=== PATIENT | female | born 1950 | race Caucasian/White ===

== ENCOUNTER → 2016-05-15 | Outpatient (CLI) | payer OTHER ==
--- NOTE | 2016-05-15 12:18 | ECHOF ---
Referral Reason:I10 htn MEASUREMENTS -------- HEIGHT: 170.2 cm WEIGHT: 77.1 kg BP: 114/74 RVIDd: 2.4 cm (< 3.3) IVSd: 0.9 cm (0.6 - 1.1) LVIDd: 3.4 cm (3.9 - 5.3) LVPWd: 1.0 cm (0.6 - 1.1) IVSs: 1.4 cm LVIDs: 2.6 cm LVPWs: 1.3 cm LA Diam: 2.6 cm (2.7 - 3.8) LAESV Index (A-L): 13.10 ml/m Ao Diam: 3.2 cm (2.0 - 3.7) AV Cusp: 1.8 cm (1.5 - 2.6) MV EXCURSION: 13.275 mm (> 18.000) MV EF SLOPE: 30 mm/s (70 - 150) EPSS: 0.7 cm MV E Amarjit: 1.14 m/s MV DecT: 383 ms MV A Amarjit: 1.27 m/s MV E/A Ratio: 0.90 RAP: 5.00 mmHg RVSP: 34.93 mmHg FINDINGS -------- Sinus rhythm. This was a technically good study. The left ventricular size is normal. Left ventricular wall thickness is normal. Overall left ventricular systolic function is normal with, an EF between 60 - 65 %. The diastolic filling pattern is normal for the age of the patient 15.28. The right ventricle is normal in size and function. The left atrium is normal in size. Normal LA size by volume 22+/-6 ml/m2. The right atrium is normal in size. The aortic valve is trileaflet and appears structurally normal. The mitral valve leaflets are mildly thickened. Mild mitral annular calcification present. Mild tricuspid regurgitation present. There is mild pulmonary hypertension. The pulmonic valve is normal. There is no pulmonic regurgitation present. The aortic root size is normal. Normal inferior vena cava with normal inspiratory collapse consistent with estimated right atrial pressure of 5 mmHg. There is no pericardial effusion. CONCLUSIONS -------- 1. Sinus rhythm. 2. The aortic valve is trileaflet and appears structurally normal. 3. The mitral valve leaflets are mildly thickened. 4. Mild mitral annular calcification present. 5. Mild tricuspid regurgitation present. 6. There is mild pulmonary hypertension. 7. The aortic root size is normal. 8. Normal inferior vena cava with normal inspiratory collapse consistent with estimated right atrial pressure of 5 mmHg. 9. There is no pericardial effusion. 10. This was a technically good study. 11. The left ventricular size is normal. 12. Left ventricular wall thickness is normal. 13. Overall left ventricular systolic function is normal with, an EF between 60 - 65 %. 14. The right ventricle is normal in size and function. 15. The left atrium is normal in size. 16. Normal LA size by volume 22+/-6 ml/m2. 17. The right atrium is normal in size. CHEMICAL ENGRAVER: Claudia Blackwood RDCS
--- NOTE | 2016-05-15 18:11 | EST ---
DATE OF SERVICE: 05/15/2016 AGE: 65Y SEX: F HT: 5'7" WT: 170 lbs. Protocol Fidencio: Other: Stage: II Dur. of Exercise: 5 minutes *Heart Rate Blood Pressure *Rest: 89 Rest: 112/79 * *Max. Achieved: 155 Maximum BP: 158/76 85% PMHR: 133 100% PMHR: 155 *METS: 5.8 INDICATIONS: ( ) MEDICATIONS: Metformin, vitamin B12, tumeric. STRESS DATA: Pre-testing physical examination showed a heart rate of 89, blood pressure 112/79 mmHg. Baseline EKG shows sinus mechanism. The patient exercised ( ) Fidencio protocol for a total of 5 minutes and achieved 5.8 METS. Maximum heart rate was 155, which is about 99% of maximum predicted heart rate. Maximum blood pressure was 158/76 mmHg. Clinically the patient did not have any symptoms. The EKG did not show any significant ST or T-wave abnormalities consistent with ischemia. CONCLUSION: 1. Average exercise capacity. 2. Normal EKG in response to exercise.
== END | disposition home or self-care (01) ==
LOC: RADNMMAIN 10:08
PROVIDERS: ATTEND Family Medicine
DX: I08.1 Rheumatic disorders of both mitral and tricuspid valves (principal); I27.2 Other secondary pulmonary hypertension
CPT/HCPCS: 93017; 93306

== ENCOUNTER → 2017-01-30 | Outpatient (CLI) | payer OTHER ==
--- NOTE | 2017-01-31 07:44 | MM ---
Reason for exam: screening (asymptomatic). Last mammogram was performed 1 year ago. History: Patient is postmenopausal. Took hormonal contraceptives for 8 years beginning at age 22. Physical Findings: A clinical breast exam by your physician is recommended on an annual basis and results should be correlated with mammographic findings. MG Screening Mammo w CAD Bilateral CC and MLO view(s) were taken. Prior study comparison: January 18, 2016, bilateral MG screening mammo w CAD. January 13, 2015, bilateral MG foundation screening mammo. The breast tissue is heterogeneously dense. This may lower the sensitivity of mammography. Stable benign calcifications. Asymmetric distortion upper right breast 6.4cm from nipple. This finding is changed when compared with previous exams. ASSESSMENT: Incomplete: need additional imaging evaluation, BI-RAD 0 RECOMMENDATION: Special view mammogram of the right breast. If lesion persists on supplemental views, image directed ultrasound is recommended. [facility] will attempt to contact patient to return for supplemental views and ultrasound if indicated.
== END | disposition home or self-care (01) ==
LOC: RADMAMWWP 09:35
PROVIDERS: ATTEND Family Medicine
DX: Z12.31 Encounter for screening mammogram for malignant neoplasm of breast (principal)

== ENCOUNTER → 2018-02-11 | Outpatient (CLI) | payer MEDICARE, OTHER ==
--- NOTE | 2018-02-12 10:36 | MM ---
Reason for exam: screening (asymptomatic). Last mammogram was performed 1 year ago. History: Patient is postmenopausal. Took hormonal contraceptives for 8 years beginning at age 22. Physical Findings: A clinical breast exam by your physician is recommended on an annual basis and results should be correlated with mammographic findings. MG 3D Screening Mammo W/Cad Bilateral CC and MLO view(s) were taken. Prior study comparison: January 30, 2017, bilateral MG screening mammo w CAD. January 18, 2016, bilateral MG screening mammo w CAD. The breast tissue is heterogeneously dense. This may lower the sensitivity of mammography. There are benign appearing round vascular calcifications bilaterally. There is no discrete abnormality. ASSESSMENT: Benign, BI-RAD 2 RECOMMENDATION: Routine screening mammogram of both breasts in 1 year.
== END | disposition home or self-care (01) ==
LOC: RADMAMWWP 07:33
PROVIDERS: ATTEND Family Medicine
DX: Z12.31 Encounter for screening mammogram for malignant neoplasm of breast (principal)
CPT/HCPCS: 77063; 77067

== ENCOUNTER → 2019-02-18 | Outpatient (CLI) | payer MEDICARE ==
--- NOTE | 2019-02-19 10:06 | MM ---
Reason for exam: screening (asymptomatic). Last mammogram was performed 1 year ago. History: Patient is postmenopausal. Took hormonal contraceptives for 8 years beginning at age 22. Physical Findings: A clinical breast exam by your physician is recommended on an annual basis and results should be correlated with mammographic findings. MG 3D Screening Mammo W/Cad Bilateral CC and MLO view(s) were taken. Prior study comparison: February 11, 2018, bilateral MG 3d screening mammo w/cad. January 30, 2017, bilateral MG screening mammo w CAD. The breast tissue is heterogeneously dense. This may lower the sensitivity of mammography. Benign appearing bilateral calcifications. No suspicious abnormality. No significant changes when compared with prior studies. ASSESSMENT: Benign, BI-RAD 2 RECOMMENDATION: Routine screening mammogram of both breasts in 1 year.
== END | disposition home or self-care (01) ==
LOC: RADMAMWWP 13:19
PROVIDERS: ATTEND Family Medicine
DX: Z12.31 Encounter for screening mammogram for malignant neoplasm of breast (principal)
CPT/HCPCS: 77063; 77067

== ENCOUNTER 2019-02-24 08:04 | Inpatient (IN) | payer MEDICARE ==
[2019-02-24] MEDS ORDERED: MORPHINE SULFATE 4 MG/ML SYRINGE IV STA (08:12)
[2019-02-24] MEDS ORDERED: SODIUM CHLORIDE 0.9% 500 ML 500 ML IV STA (08:12)
[2019-02-24] MEDS ORDERED: ASPIRIN 81 MG PO STA (08:12)
[2019-02-24] MEDS ORDERED: ATORVASTATIN 80 MG TAB PO STA (08:13)
[2019-02-24] MEDS ORDERED: HEPARIN SODIUM,PORCINE 5,000 UNIT/ML 1 ML VIAL IV STA (08:13)
--- NOTE | 2019-02-24 08:15 | ED ---
General Adult HPI - General Stated complaint: CHEST PAIN Time Seen by Provider: 02/24/19 08:04 Source: patient, family, EMS, RN notes reviewed, old records reviewed Mode of arrival: EMS Limitations: no limitations - History of Present Illness Initial comments: Patient is a pleasant 68-year-old female presenting to the emergency Department with complaints of chest discomfort. Onset of symptoms was around 6:30 this morning. Patient was at work at [employer]. Discomfort was 10/10 however now is 8/10. Discomfort feels like pressure. There is some radiation out laterally as well as the left arm. Patient does feel associated shortness of breath, nausea, and sweaty. Patient did vomit once in the emergency department. No history of similar symptoms previously. No back pain. - Related Data Allergies Allergy/AdvReac Type Severity Reaction Status Date / Time No Known Allergies Allergy Verified 02/24/19 08:36 Review of Systems ROS Statement: Those systems with pertinent positive or pertinent negative responses have been documented in the HPI. ROS Other: All systems not noted in ROS Statement are negative. Constitutional: Denies: fever Eyes: Denies: eye pain ENT: Denies: ear pain Respiratory: Reports: dyspnea Cardiovascular: Reports: chest pain Endocrine: Denies: fatigue Gastrointestinal: Reports: nausea Genitourinary: Denies: dysuria Musculoskeletal: Denies: back pain Skin: Denies: rash Neurological: Denies: weakness Past Medical History Past Medical History: Diabetes Mellitus, Hyperlipidemia Past Drug Use History: None Reported General Exam Limitations: no limitations General appearance: alert, in distress Head exam: Present: normocephalic Eye exam: Present: normal appearance Neck exam: Present: normal inspection Respiratory exam: Present: normal lung sounds bilaterally. Absent: chest wall tenderness Cardiovascular Exam: Present: regular rate, normal rhythm, normal heart sounds Expanded Peripheral pulses: 2+: Radial (R), Radial (L), Posterior Tibialis (R), Posterior Tibialis (L), Dorsalis Pedis (R), Dorsalis Pedis (L) GI/Abdominal exam: Present: soft. Absent: tenderness Extremities exam: Present: normal inspection. Absent: pedal edema, calf tenderness Back exam: Present: normal inspection Neurological exam: Present: alert Psychiatric exam: Present: normal affect, normal mood Skin exam: Present: normal color Course Vital Signs 02/24/19 08:12 Temperature 98.0 F Pulse Rate 78 Respiratory 16 Rate Blood Pressure 157/76 O2 Sat by Pulse 99 Oximetry - Reevaluation(s) Reevaluation #1: 02/24/19 08:15 Repeat EKG: Right-sided EKG shows sinus rhythm at 69. NJ 144. QRS 86. QT 376. QTc 402. Normal axis. Inferior ST elevation. There is some evidence of elevation in lead V4. EKG Findings - EKG Comments: EKG Findings:: Sinus rhythm at 72. NJ 136. QRS 108. QT 386. QTc 422. Normal axis. Significant ST elevation inferior with reciprocal change in aVL. There is some depression G2 V3 V4 and V5 V6. Medical Decision Making - Medical Decision Making Case was discussed with Dr. Elizabeth with cardiology. Case was also discussed with Dr. Brunson from cardiology. Dr. Barkley has been paged for admission covering for Dr. Segura. Patient and family were updated on diagnosis and plan. - Lab Data Result diagrams: 02/24/19 08:15 Lab Results 02/24/19 Range/Units 08:15 WBC 10.4 (3.8-10.6) k/uL RBC 4.40 (3.80-5.40) m/uL Hgb 13.6 (11.4-16.0) gm/dL Hct 39.8 (34.0-46.0) % MCV 90.5 (80.0-100.0) fL MCH 31.0 (25.0-35.0) pg MCHC 34.3 (31.0-37.0) g/dL RDW 12.6 (11.5-15.5) % Plt Count 268 (150-450) k/uL Neutrophils % 73 % Lymphocytes % 16 % Monocytes % 6 % Eosinophils % 2 % Basophils % 0 % Neutrophils # 7.6 (1.3-7.7) k/uL Lymphocytes # 1.7 (1.0-4.8) k/uL Monocytes # 0.7 (0-1.0) k/uL Eosinophils # 0.2 (0-0.7) k/uL Basophils # 0.0 (0-0.2) k/uL - Radiology Data Interpreted by me: No evidence of mediastinal widening. No acute abnormality. Disposition Clinical Impression: STEMI (ST elevation myocardial infarction) Disposition: ADMITTED IP TO THIS HOSP Condition: Critical Is patient prescribed a controlled substance at d/c from ED?: No Referrals: Leon Cade DO [Primary Care Provider] - 1-2 days
[2019-02-24] MEDS ORDERED: SODIUM CHLORIDE 0.9% 1,000 ML IV ONE (08:30)
[2019-02-24] MEDS ORDERED: LIDOCAINE 1% INJ 10MG/ML (20 ML MDV) ONE (08:35)
[2019-02-24] MEDS ORDERED: LIDOCAINE 1% INJ 10MG/ML (20 ML MDV) SQ ONE (08:38)
[2019-02-24] MEDS ORDERED: MIDAZOLAM 2 MG/2 ML VIAL IV ONE (08:40)
--- NOTE | 2019-02-24 08:42 | XR ---
EXAMINATION TYPE: XR chest 1V portable DATE OF EXAM: 02/24/2019 Comparison: 03/20/2016 Clinical History: 68-year-old female chest pain Findings: Heart normal size. Aorta and pulmonary vasculature within normal limits. Mild interstitial prominence appears largely chronic. Strandy bibasilar atelectasis. No consolidation or pleural effusion. Impression: Chronic appearing changes, possible bronchitis or asthma. Otherwise, no acute cardiopulmonary process .
[2019-02-24] MEDS ORDERED: CLOPIDOGREL 75 MG TAB ONE (08:45)
[2019-02-24] MEDS ORDERED: BIVALIRUDIN BOLUS 250 MG/50 ML IV ONE (08:45)
[2019-02-24] MEDS ORDERED: BIVALIRUDIN 250 MG in SODIUM CHLORIDE 0.9% 50 ML IV ONE (08:46)
[2019-02-24] MEDS ORDERED: CLOPIDOGREL 75 MG TAB PO ONE (08:49)
[2019-02-24 08:53] LABS: Basophils % (A) 0 %; Eosinophils # (A) 0.2 k/uL (0-0.7); Eosinophils % (A) 2 %; HCT 39.8 % (34.0-46.0); HGB 13.6 gm/dL (11.4-16.0); Lymphocytes # (A) 1.7 k/uL (1.0-4.8); Lymphocytes % (A) 16 %; MCHC 34.3 g/dL (31.0-37.0); MCV 90.5 fL (80.0-100.0); Mean Platelet Volume 6.5; Monocytes # (A) 0.7 k/uL (0-1.0); Monocytes % (A) 6 %; Neutrophils # (A) 7.6 k/uL (1.3-7.7); Neutrophils % (A) 73 %; Platelet Count 268 k/uL (150-450); RDW 12.6 % (11.5-15.5); WBC 10.4 k/uL (3.8-10.6)
[2019-02-24] MEDS: NITROGLYCERIN 1000MCG/10ML SYRINGE INTRACORON ONE ×2 (08:54→09:03)
[2019-02-24] MEDS ORDERED: HYDROmorphone 1 MG/ML 1 ML SYRINGE ONE (08:56)
[2019-02-24] MEDS ORDERED: HYDROmorphone 1 MG/ML 1 ML SYRINGE IVP ONE (08:58)
[2019-02-24] MEDS ORDERED: IOPAMIDOL-370 125ML BTL INJ ONE (09:03)
[2019-02-24 09:04] LABS: Partial Thromboplastin Time 25.5 sec (22.0-30.0); Prothrombin Time 10.8 sec (9.0-12.0)
[2019-02-24 09:05] LABS: Albumin 3.8 g/dL (3.5-5.0); Magnesium 1.3 mg/dL (1.6-2.3); Potassium 4.9 mmol/L (3.5-5.1); Total Bilirubin 0.6 mg/dL (0.2-1.3); Total Protein 6.8 g/dL (6.3-8.2)
[2019-02-24] MEDS ORDERED: RX INFO: IV CONTRAST WAS GIVEN 1 EACH MISC MISCELLANE PRN (09:20)
[2019-02-24] MEDS ORDERED: ZOLPIDEM 5 MG TAB PO PRN (09:20)
[2019-02-24] MEDS ORDERED: MAG HYDROX/AL HYDROX/SIMETH 30 ML CUP PO PRN (09:20)
[2019-02-24] MEDS ORDERED: NITROGLYCERIN SL TABS 0.4 MG TAB SUBLINGUAL PRN (09:20)
[2019-02-24] MEDS ORDERED: ATROPINE SULFATE 0.1 MG/ML 10ML SYRINGE IV PRN (09:20)
[2019-02-24] MEDS ORDERED: Magnesium Replacement Protocol 1 EACH MISC MISCELLANE PRN (09:22)
[2019-02-24 09:25] LABS: Creatine Kinase MB 1.4 ng/mL (0.0-2.4)
--- NOTE | 2019-02-24 09:28 | P.CRDCN ---
History of Present Illness Consult date: 02/24/19 Chief complaint: Chest pain History of present illness: This is a pleasant 68-year-old female patient with a past medical history significant for diabetes, hypertension, dyslipidemia, and chronic disease, presented to the emergency room complaining of chest discomfort. The patient was brought to the emergency room by ambulance. She was in her usual state of health until earlier today when she started experiencing pressure across her chest, the pressure was radiating to her left arm, associated with shortness of breath and sweating. No nausea or vomiting or syncope. In route to the hospital, the patient was found to be in acute inferior ST patient myocardial infarction. Subsequently she was seen briefly in the ER for eval uation and then the patient underwent an emergent heart catheterization which revealed acute total occlusion of the midright coronary artery with a plaque rupture and thrombus formation along with severe disease involving the left circumflex and intermediate to severe disease involving the proximal to mid LAD. The patient underwent an aspiration thrombectomy from the right coronary artery with the extraction of thrombus and successful balloon angioplasty and stenting of the RCA with an excellent angiographic results and MK 3 flow and reduction of stenosis from 100% to 0%. She was chest pain-free by the end of the procedure and no ST segment deviation seen as well. The patient is going to be admitted to the intensive care unit and she will be on dual antiplatelet therapy along with high intensity started along with anti-ischemic medication. An echocardiogram is in process to be done. Past Medical History Past Medical History: Diabetes Mellitus, Hyperlipidemia Past Drug Use History: None Reported Medications and Allergies Allergies Allergy/AdvReac Type Severity Reaction Status Date / Time No Known Allergies Allergy Verified 02/24/19 08:36 Physical Exam Vitals: Vital Signs Temp Pulse Resp BP Pulse Ox 02/24/19 08:15 68 16 139/89 100 02/24/19 08:12 98.0 F 78 16 157/76 99 Intake and Output 02/23/19 02/24/19 02/24/19 22:59 06:59 14:59 Intake Total 875 Balance 875 Intake: IV 875 Other: Weight 86.183 kg - Constitutional General appearance: no acute distress - Respiratory Respiratory: bilateral: CTA - Cardiovascular Rhythm: regular Heart sounds: normal: S1, S2 Results 02/24/19 08:15 02/24/19 08:15 Cardiac Enzymes 02/24/19 Range/Units 08:15 AST 24 (14-36) U/L Coagulation 02/24/19 Range/Units 08:15 PT 10.8 (9.0-12.0) sec APTT 25.5 (22.0-30.0) sec CBC 02/24/19 Range/Units 08:15 WBC 10.4 (3.8-10.6) k/uL RBC 4.40 (3.80-5.40) m/uL Hgb 13.6 (11.4-16.0) gm/dL Hct 39.8 (34.0-46.0) % Plt Count 268 (150-450) k/uL Comprehensive Metabolic Panel 02/24/19 Range/Units 08:15 Sodium 137 (137-145) mmol/L Potassium 4.9 (3.5-5.1) mmol/L Chloride 104 (98-107) mmol/L Carbon Dioxide 21 L (22-30) mmol/L BUN 37 H (7-17) mg/dL Creatinine 1.45 H (0.52-1.04) mg/dL Glucose 222 H (74-99) mg/dL Calcium 10.0 (8.4-10.2) mg/dL AST 24 (14-36) U/L ALT 38 (9-52) U/L Alkaline Phosphatase 84 (38-126) U/L Total Protein 6.8 (6.3-8.2) g/dL Albumin 3.8 (3.5-5.0) g/dL Intake and Output 02/23/19 02/24/19 02/24/19 22:59 06:59 14:59 Intake Total 875 Balance 875 Intake: IV 875 Other: Weight 86.183 kg Patient Weight 02/25/19 06:59 Weight 86.183 kg 02/24/19 08:15 02/24/19 08:15 Assessment and Plan Assessment: Assessment #[address] patient myocardial infarction #2 acute total occlusion of the RCA #3 successful stenting of the RCA #4 severe disease involving the left circumflex and intermediate to severe disease involving the LAD #5 hypertension #6 dyslipidemia #7 right kidney disease #8 family history of CAD Plan #1 the patient will be on dual antiplatelet therapy #2 the intensity statin #3 anti-ischemic medication including metoprolol as well as lisinopril #4 an echocardiogram to be done #5 PCI of the left circumflex #6 ICU admission Thank you for allowing us participate in the patient's care
[2019-02-24] MEDS ORDERED: SODIUM CHLORIDE 0.9% 1,000 ML IV SCH (09:30)
[2019-02-24 09:38] LABS: Glucose,Whole Blood 217 mg/dL (75-99)
[2019-02-24 09:49] LABS: Troponin I 0.054 ng/mL (0.000-0.034)
--- NOTE | 2019-02-24 10:03 | CC ---
CARDIAC CATHETERIZATION REPORT CARDIAC CATHETERIZATION AND PERCUTANEOUS CORONARY INTERVENTION: DATE OF SERVICE: February 24, 2019. PERFORMING PHYSICIAN: Kaushik Brunson MD. PROCEDURE PERFORMED: 1. Selective right and left coronary angiogram. 2. Aspiration thrombectomy from the right coronary artery. 3. Successful stenting of the mid right coronary artery using 3.5 x 38 mm Xience LAURA with excellent angiographic results and reduction of stenosis from 100% to 0%. 4. Left heart catheterization. INDICATION: This is a 68-year-old female patient with history of hypertension, dyslipidemia, chronic kidney disease, and significant family history of coronary artery disease, was brought to the emergency room with chest discomfort and was diagnosed with acute inferior ST-elevation myocardial infarction. Given the above, an emergent heart catheterization was advised. APPROACH: Right common femoral artery. COMPLICATION: None. LEVEL OF SEDATION: Moderate with sedation length of 35 minutes. PROCEDURE DESCRIPTION: After obtaining an informed consent, the patient was brought to the cardiac geochemical laboratory technician. The right common femoral artery was cannulated using micropuncture technique and a micropuncture wire passed easily then I placed a 6-Stateless sheath. At that point, I did selective right and left coronary angiogram using JR4 and JL4 catheters. After that I did intervene on the right coronary artery. Please see a separate paragraph for that. Subsequently, I did leave heart catheterization using 6-Stateless pigtail catheter. After that, the procedure was completed without any complication. SELECTIVE CORONARY ANGIOGRAM: 1. The right coronary artery is acutely occluded in the mid portion. 2. The left main is angiographically normal. It bifurcates into LCX and LAD. 3. The left circumflex is a large caliber vessel. It is a nondominant vessel. The proximal left circumflex appeared to be normal. The mid left circumflex has a tight lesion appeared to be in the range of 80% to 90%. The circumflex distally appeared to be normal. 4. The LAD: The proximal LAD has mild disease only. The proximal to mid LAD by the bifurcation of a diagonal branch has a lesion appeared to be in the range of 60%. The LAD after that becomes a medium caliber vessel with mild diffuse disease only. PCI OF THE RCA: Anticoagulation was initiated using Angiomax. I did engage the RCA using JR4 guide. I did after that wire using a whisper wire. I did aspiration thrombectomy using an [place] catheter with extraction of thrombus. Subsequently I did balloon angioplasty using 3.5 mm x 20 mm balloon before I deployed a 3.5 x 38 mm Xience LAURA where the stent was positioned under fluoroscopy guidance and deployed under 20 atmospheres for 20 seconds. The following angiogram showed excellent angiographic results with reduction of stenosis from 100% to 0%. The procedure was completed without any complication. HEMODYNAMICS: The LVEDP was 12 mmHg without significant gradient across the aortic valve. CONCLUSION: 1. Acute inferior ST-elevation myocardial infarction. 2. Acute total occlusion of the mid right coronary artery with a plaque rupture and thrombus formation. 3. Successful PCI of the mid right coronary artery using 3.5 x 38 mm Xience LAURA with excellent angiographic results. 4. Critical disease involving the mid left circumflex. 5. Intermediate to severe disease involving the proximal to mid left anterior descending artery. POSTPROCEDURE MANAGEMENT: 1. Dual antiplatelet therapy. 2. Risk factor modification. 3. PCI of the left circumflex to be done in the next 48 hours. 4. Probably myocardial perfusion imaging stress test to be done as an outpatient to assess for ischemia in the LAD territory. MMODL / IJN: [id number] /
[2019-02-24] MEDS: MAGNESIUM SULFATE-D5W PMX 1 GM in DEXTROSE/WATER 1 100ML.BAG IVPB SCH ×3 (10:04→14:56)
--- NOTE | 2019-02-24 10:57 | ECHOF ---
Referral Reason:STEMI MEASUREMENTS -------- HEIGHT: 167.6 cm WEIGHT: 86.2 kg BP: 139/89 RVIDd: 2.4 cm (< 3.3) IVSd: 1.2 cm (0.6 - 1.1) LVIDd: 3.2 cm (3.9 - 5.3) LVPWd: 1.2 cm (0.6 - 1.1) IVSs: 1.4 cm LVIDs: 2.1 cm LVPWs: 1.2 cm LA Diam: 2.7 cm (2.7 - 3.8) LAESV Index (A-L): 16.46 ml/m Ao Diam: 3.2 cm (2.0 - 3.7) AV Cusp: 1.9 cm (1.5 - 2.6) MV EXCURSION: 19.458 mm (> 18.000) MV EF SLOPE: 194 mm/s (70 - 150) EPSS: 0.3 cm MV E Amarjit: 1.25 m/s MV DecT: 300 ms MV A Amarjit: 1.37 m/s MV E/A Ratio: 0.91 AR PHT: 449 ms RAP: 5.00 mmHg RVSP: 28.65 mmHg TAPSE: 21.52 mm FINDINGS -------- Sinus rhythm. This was a technically good study. The left ventricular size is normal. There is borderline concentric left ventricular hypertrophy. Overall left ventricular systolic function is normal with, an EF between 55 - 60 %. The diastolic filling pattern indicates impaired relaxation 23.25. The right ventricle is normal in size. Normal LA size by volume 22+/-6 ml/m2. The right atrium is normal in size. The aortic valve is trileaflet and appears structurally normal. There is mild aortic regurgitation. The mitral valve leaflets are mildly thickened. Mild tricuspid regurgitation present. Right ventricular systolic pressure is normal at < 35 mmHg. Trace/mild (physiologic) pulmonic regurgitation. The aortic root size is normal. Normal inferior vena cava with normal inspiratory collapse consistent with estimated right atrial pre ssure of 5 mmHg. There is no pericardial effusion. CONCLUSIONS -------- 1. Sinus rhythm. 2. This was a technically good study. 3. The left ventricular size is normal. 4. There is borderline concentric left ventricular hypertrophy. 5. Overall left ventricular systolic function is normal with, an EF between 55 - 60 %. 6. The diastolic filling pattern indicates impaired relaxation 23.25.. 7. The right ventricle is normal in size. 8. Normal LA size by volume 22+/-6 ml/m2. 9. The right atrium is normal in size. 10. The aortic valve is trileaflet and appears structurally normal. 11. The mitral valve leaflets are mildly thickened. 12. Mild tricuspid regurgitation present. 13. Right ventricular systolic pressure is normal at < 35 mmHg. 14. Trace/mild (physiologic) pulmonic regurgitation. 15. The aortic root size is normal. 16. Normal inferior vena cava with normal inspiratory collapse consistent with estimated right atrial pressure of 5 mmHg. 17. There is no pericardial effusion. LEGAL SUMMER INTERN: Claudia Blackwood RDCS
[2019-02-24] MEDS: LINAGLIPTIN 5 MG TABLET PO SCH (11:34)
[2019-02-24 11:45] LABS: Glucose,Whole Blood 204 mg/dL (75-99)
[2019-02-24] MEDS: INSULIN ASPART (NovoLOG) 100 UNIT/ML VIAL SQ SCH ×3 (11:46→21:02)
--- NOTE | 2019-02-24 12:46 | P.HPIM ---
History of Present Illness H&P Date: 02/24/19 Chief Complaint: chest pain, shortness of breath This is a 68-year-old female patient of Dr. Cade with a past medical history significant for diabetes, hypertension, dyslipidemia, chronic kidney disease, diabetic neuropathy. She presented to [facility] emergency room complaining of chest discomfort. Patient states that she left her house this morning at 5:30 in the morning and drove to her work which is [employer]. She arrived around 6 and it was quite busy and then around 6:30 chest pain started in the midsternal area radiating to the left shoulder. She states by 7:00 she said she had to go home and when she got home her called 911 and patient was brought by him and lives into the hospital. In route to the hospital, the patient was found to be in acute inferior ST elevated myocardial infarction. Subsequently she was seen briefly in the ER for evaluation and then the patient underwent an emergent heart catheterization with Dr. Brunson which revealed acute total occlusion of the midright coronary artery with a plaque rupture and thrombus formation along with severe disease involving the left circumflex and intermediate to severe disease involving the proximal to mid LAD. The patient underwent an aspiration thrombectomy from the right coronary artery with the extraction of thrombus and successful balloon angiopl asty and stenting of the RCA with an excellent angiographic results and MK 3 flow and reduction of stenosis from 100% to 0%. She was chest pain-free by the end of the procedure and no ST segment deviation seen as well. The patient is now seen in the intensive care unit. She remains chest pain-free. She denies any shortness of breath, dizziness or lightheadedness. Right groin is without difficulties. Her last hemoglobin A1c was 7.3. I work on presentation includes BUN 37 creatinine 1.45, blood sugar 222, magnesium 1.3, troponin 0.054. Chest x-ray reveals chronic appearing changes, possible bronchitis or asthma. Otherwise no acute cardiopulmonary process. Echocardiogram reveals EF of 55-60% with borderline concentric left hypertrophy, mild tricuspid regurgitation. Review of Systems Constitutional: Reports fatigue, Denies anorexia, Denies chills, Denies fever, Denies lethargy, Denies malaise, Denies poor appetite, Denies weakness Eyes: denies blurred vision, denies pain Ears, nose, mouth and throat: Denies dental pain, Denies headache, Denies nasal congestion, Denies nasal discharge, Denies sore throat, Denies vertigo Cardiovascular: Reports chest pain, Denies edema, Denies leg edema, Denies lightheadedness, Denies shortness of breath, Denies syncope Respiratory: Denies cough, Denies cough with sputum, Denies dyspnea, Denies exce ssive sputum, Denies hemoptysis, Denies home oxygen, Denies wheezing Gastrointestinal: Denies abdominal pain, Denies constipation, Denies diarrhea, Denies melena, Denies nausea, Denies vomiting Genitourinary: Denies dysuria, Denies hematuria, Denies urgency, Denies urinary frequency Musculoskeletal: Denies frequent falls, Denies gait dysfunction, Denies muscle weakness, Denies myalgias Integumentary: Denies pruritus, Denies rash, Denies wounds Neurological: Denies change in mentation, Denies gait dysfunction, Denies numbness, Denies weakness Psychiatric: Denies anxiety, Denies depression Endocrine: Denies fatigue, Denies weight change Past Medical History Past Medical History: Coronary Artery Disease (CAD), Diabetes Mellitus, Hyperlipidemia, Myocardial Infarction (HI) Past Surgical History: Cholecystectomy, Hysterectomy Additional Past Surgical History / Comment(s): Bilateral cataract removal and intraocular lens implants, left detached retina status post 5 surgeries with scleral buckle, kidney surgery as patient reports kidney was oversized and was reduced by surgery, aspiration thrombectomy, balloon angioplasty and stenting of the RCA Additional Past Alcohol Use History / Comment(s): Patient was a tobacco smoker and quit 40 years ago. She drinks alcohol occasionally. No illicit drug use. She lives at home with her . She is currently working at [employer]. She does not have nebulizer, CPAP or oxygen at home. She does not require walker or cane for ambulation. Past Drug Use History: None Reported - Past Family History Father Family Medical History: Congestive Heart Failure (CHF) Additional Family Medical History / Comment(s): Father of CHF at the age of 73 yrs with history of hypertension and diabetes. Mother Family Medical History: Cancer Additional Family Medical History / Comment(s): Mother of nonhodgkins lymphoma at the age of 86yrs with history of coronary artery disease and stent. Brother(s) Additional Family Medical History / Comment(s): Patient has 3 brothers all with diabetes and one has additional history of the foot amputation due to diabetes, patient and stroke. Sister(s) Additional Family Medical History / Comment(s): Patient has one sister with ITP. Daughter(s) Additional Family Medical History / Comment(s): Patient has 2 daughters and one has Lyme's disease. Patient does not have any sons. Medications and Allergies Home Medications Medication Instructions Recorded Confirmed Type Aspirin EC [Ecotrin] 325 mg PO MOWEFR 02/24/19 02/24/19 History Biotin 5 mg PO DAILY 02/24/19 02/24/19 History Calcium/Magnesium/Zinc 1 tab PO DAILY 02/24/19 02/24/19 History [Msabhun-Qkjqqltkt-Hhgl Tablet] Cholecalciferol [Vitamin D3 (25 1,000 unit PO DAILY 02/24/19 02/24/19 History Mcg = 1000 Iu)] Cinnamon Bark [Cinnamon] 500 mg PO AC-LUNCH 02/24/19 02/24/19 History Cyanocobalamin (Vitamin B-12) 1,000 mcg PO DAILY 02/24/19 02/24/19 History [Vitamin B-12] Dhea(Unknown Dose) 1 cap PO DAILY 02/24/19 02/24/19 History Dulaglutide [Trulicity] 1.5 mg SQ TU 02/24/19 02/24/19 History Fexofenadine HCl [Liana Allergy] 180 mg PO DAILY 02/24/19 02/24/19 History L.acidoph,Paracasei, B.lactis 1 cap PO AC-LUNCH 02/24/19 02/24/19 History [Probiotic] Losartan Potassium 100 mg PO AC-LUNCH 02/24/19 02/24/19 History Turmeric Root Extract [Turmeric] 500 mg PO BID 02/24/19 02/24/19 History Vitamin B Complex 1 cap PO DAILY 02/24/19 02/24/19 History glipiZIDE [Glucotrol] 5 mg PO DAILY 02/24/19 02/24/19 History metFORMIN HCL [Glucophage] 500 mg PO BID 02/24/19 02/24/19 History sitaGLIPtin [Januvia] 100 mg PO DAILY 02/24/19 02/24/19 History Allergies Allergy/AdvReac Type Severity Reaction Status Date / Time codeine AdvReac Nausea & Verified 02/24/19 11:24 Vomiting Physical Exam Vitals: Vital Signs Temp Pulse Resp BP BP Pulse Ox 02/24/19 10:30 93 13 148/85 139/75 98 02/24/19 10:15 90 12 150/75 148/85 97 02/24/19 10:00 94 11 L 143/83 150/75 97 02/24/19 09:45 96.2 F L 96 12 144/89 143/83 97 02/24/19 09:37 96.2 F L 97 13 144/89 93 L 02/24/19 08:15 68 16 139/89 100 02/24/19 08:12 98.0 F 78 16 157/76 99 Intake and Output 02/23/19 02/24/19 02/24/19 22:59 06:59 14:59 Intake Total 950 Balance 950 Intake: IV 950 Sodium Chloride 0.9% 1, 75 000 ml @ 75 mls/hr IV . [id number] [facility] Rx#:[id number] Other: Weight 86.183 kg - Constitutional General appearance: average body habitus, cooperative, no acute distress, no severe distress - EENT Eyes: normal appearance ENT: hearing grossly normal, no thrush - Neck Neck: no lymphadenopathy, no rigidity - Respiratory Respiratory: bilateral: CTA - Cardiovascular Rhythm: regular Heart sounds: normal: S1, S2 Abnormal Heart Sounds: no systolic murmur, no diastolic murmur - Gastrointestinal General gastrointestinal: no distended, normal bowel sounds, no organomegaly, soft, no tenderness - Integumentary Integumentary: normal, normal turgor, no pale - Neurologic Neurologic: CNII-XII intact - Musculoskeletal Musculoskeletal: no generalized weakness, strength equal bilaterally - Psychiatric Psychiatric: A&O x's 3, appropriate affect, intact judgment & insight Results CBC & Chem 7: 02/24/19 08:15 02/24/19 08:15 Labs: Abnormal Lab Results - Last 24 Hours (Table) 02/24/19 02/24/19 02/24/19 Range/Units 08:15 08:15 09:37 Carbon Dioxide 21 L (22-30) mmol/L BUN 37 H (7-17) mg/dL Creatinine 1.45 H (0.52-1.04) mg/dL Glucose 222 H (74-99) mg/dL POC Glucose (mg/dL) 217 H (75-99) mg/dL Magnesium 1.3 L (1.6-2.3) mg/dL Total Creatine Kinase 178 H (30-135) U/L Troponin I 0.054 H* (0.000-0.034) ng/mL Thrombosis Risk Factor Assmnt - DVT/VTE Prophylaxis DVT/VTE Prophylaxis: Pharmacologic Prophylaxis ordered Assessment and Plan Plan: 1. Acute inferior ST elevated myocardial infarction with total occlusion of the RCA status post emergent heart catheterization with aspiration thrombectomy from the right coronary artery with the extraction of thrombus and successful balloon angioplasty and stenting of the RCA. Patient also has severe disease in the left circumflex and intermediate to severe disease in the proximal to mid LAD. Patient has been started on aspirin, Lipitor 80 mg, Plavix 75 mg, Lopressor 25 mg twice daily, fosinopril 2.5 mg daily. 2. Hypertension. Continue lisinopril and Lopressor. Hold losartan. 3. Hyperlipidemia. Continue atorvastatin. 4. Chronic kidney disease IIIB, at baseline. Recheck basic metabolic panel in the morning, avoid nephrotoxic agents, hold metformin 5. Diabetes mellitus type 2 with diabetic neuropathy of the lower extremities. Continue NovoLog scale before meals and at bedtime, resume glipizide 5 mg daily, Tradjenta 5 mg daily for Januvia. Hold metformin. 6. GI prophylaxis. Pepcid. Patient will be admitted to the hospital for a minimum of 3 night stay. Discharge plan: return home Impression and plan of care have been directed as dictated by the signing physician. Benita Olivera nurse practitioner acting as scribe for signing physician.
[2019-02-24 14:03] VITALS: BMI 30.7
[2019-02-24] MEDS: glipiZIDE 5 MG TAB PO SCH (14:53)
[2019-02-24 17:06] LABS: Glucose,Whole Blood 250 mg/dL (75-99)
[2019-02-24 20:36] LABS: Glucose,Whole Blood 159 mg/dL (75-99)
[2019-02-24] MEDS: METOPROLOL TARTRATE 25 MG TAB PO SCH (21:02)
[2019-02-24] MEDS: ATORVASTATIN 80 MG TAB PO SCH (21:02)
[2019-02-25 05:59] LABS: Calcium 9.9 mg/dL (8.4-10.2); Magnesium 1.9 mg/dL (1.6-2.3); Potassium 4.9 mmol/L (3.5-5.1)
[2019-02-25 06:57] LABS: Glucose,Whole Blood 155 mg/dL (75-99)
[2019-02-25] MEDS: INSULIN ASPART (NovoLOG) 100 UNIT/ML VIAL SQ SCH ×4 (07:00→20:56)
[2019-02-25] MEDS: CLOPIDOGREL 75 MG TAB PO SCH (08:16)
[2019-02-25] MEDS: MAGNESIUM SULFATE-D5W PMX 1 GM in DEXTROSE/WATER 1 100ML.BAG IVPB SCH ×2 (08:16→11:14)
[2019-02-25] MEDS: CHOLECALCIFEROL 1,000 UNIT TAB PO SCH (08:17)
[2019-02-25] MEDS: FAMOTIDINE 20 MG TAB PO SCH (08:17)
[2019-02-25] MEDS: METOPROLOL TARTRATE 25 MG TAB PO SCH ×2 (08:17→20:56)
[2019-02-25] MEDS: CYANOCOBALAMIN 500 MCG TAB PO SCH (08:17)
[2019-02-25] MEDS: LISINOPRIL 2.5 MG TAB PO SCH (08:17)
[2019-02-25] MEDS: glipiZIDE 5 MG TAB PO SCH ×2 (08:17→17:18)
[2019-02-25] MEDS: ASPIRIN 325 MG TAB PO SCH (08:17)
--- NOTE | 2019-02-25 08:54 | P.PN ---
Subjective Progress Note Date: 02/25/19 Principal diagnosis: Acute coronary event This is a pleasant 68-year-old female patient with history of hypertension and dyslipidemia presented to the hospital with a chest discomfort and was diagnosed with acute inferior ST elevation myocardial infarction which she underwent an emergent heart catheterization and was found to have occluded RCA which was opened and stented and also severe disease involving the left circumflex coronary artery. She was seen this morning, February 252018, and she is asymptomatic and doing well clinically. She is hemodynamically stable and she has been maintaining normal sinus mechanism beach she remains on dual antiplatelet therapy along with high intensity started along with anti-ischemic medication. The echocardiogram revealed normal LV function. Objective - Vital Signs Vital signs: Vital Signs Temp 98 F 02/25/19 04:00 Pulse 91 02/25/19 07:00 Resp 9 L 02/25/19 07:00 BP 141/68 02/25/19 07:00 Pulse Ox 95 02/25/19 07:00 Intake & Output 02/24/19 02/25/19 02/25/19 18:59 06:59 18:59 Intake Total 2525 270 Output Total 450 1500 0 Balance 2075 -1230 0 Weight 86.183 kg 90.2 kg Intake: IV 2024 150 Magnesium Sulfate-D5w Pmx 400 1 gm In Dextrose/Water 1 100ml.bag @ 100 mls/hr IVPB Q1H [facility] Rx#: [id number] Sodium Chloride 0.9% 1, 750 150 000 ml @ 75 mls/hr IV . [id number] [facility] Rx#:[id number] Oral 120 Blood Product 500 Output: Urine 450 1500 0 Other: Voiding Method Toilet Toilet # Voids 1 - Constitutional General appearance: Present: no acute distress - Respiratory Respiratory: bilateral: CTA - Cardiovascular Rhythm: regular Heart sounds: normal: S1, S2 - Labs CBC & Chem 7: 02/24/19 08:15 02/25/19 04:45 Labs: Abnormal Lab Results - Last 24 Hours (Table) 02/24/19 02/24/19 02/24/19 Range/Units 08:15 08:15 09:37 Carbon Dioxide 21 L (22-30) mmol/L BUN 37 H (7-17) mg/dL Creatinine 1.45 H (0.52-1.04) mg/dL Glucose 222 H (74-99) mg/dL POC Glucose (mg/dL) 217 H (75-99) mg/dL Magnesium 1.3 L (1.6-2.3) mg/dL Total Creatine Kinase 178 H (30-135) U/L Troponin I 0.054 H* (0.000-0.034) ng/mL LDL Cholesterol, Calc (0-99) mg/dL HDL Cholesterol (40-60) mg/dL 02/24/19 02/24/19 02/24/19 Range/Units 11:43 17:05 20:35 Carbon Dioxide (22-30) mmol/L BUN (7-17) mg/dL Creatinine (0.52-1.04) mg/dL Glucose (74-99) mg/dL POC Glucose (mg/dL) 204 H 250 H 159 H (75-99) mg/dL Magnesium (1.6-2.3) mg/dL Total Creatine Kinase (30-135) U/L Troponin I (0.000-0.034) ng/mL LDL Cholesterol, Calc (0-99) mg/dL HDL Cholesterol (40-60) mg/dL 02/25/19 02/25/19 Range/Units 04:45 06:55 Carbon Dioxide (22-30) mmol/L BUN 31 H (7-17) mg/dL Creatinine 1.45 H (0.52-1.04) mg/dL Glucose 144 H (74-99) mg/dL POC Glucose (mg/dL) 155 H (75-99) mg/dL Magnesium (1.6-2.3) mg/dL Total Creatine Kinase (30-135) U/L Troponin I (0.000-0.034) ng/mL LDL Cholesterol, Calc 115 H (0-99) mg/dL HDL Cholesterol 35 L (40-60) mg/dL Assessment and Plan Assessment: Assessment #[address] elevation myocardial infarction #2 status post PCI of the RCA #3 multiple comorbid conditions Plan #1 continue the current medical regimen including dual antiplatelet therapy and high intensity started #2 PCI of the left circumflex to be not in the next 24 hours #3 the patient can be transferred to the third floor
[2019-02-25] MEDS ORDERED: NON FORMULARY DRUG (Vitamin B Complex [Vitamin B Complex] 1 CAP) PO SCH (09:00)
[2019-02-25 11:49] LABS: Glucose,Whole Blood 123 mg/dL (75-99)
[2019-02-25] MEDS ORDERED: ACETAMINOPHEN TAB 325 MG TAB PO PRN (11:52)
[2019-02-25] MEDS: LINAGLIPTIN 5 MG TABLET PO SCH (12:16)
[2019-02-25] MEDS: LACTOBACILLUS ACIDOPH & BULGAR 1 EACH PACKET PO SCH (12:22)
--- NOTE | 2019-02-25 12:36 | P.PN ---
Subjective Progress Note Date: 02/25/19 This is a 68-year-old female patient of Dr. Cade with a past medical history significant for diabetes, hypertension, dyslipidemia, chronic kidney disease, diabetic neuropathy. She presented to [facility] emergency room complaining of chest discomfort. Patient states that she left her house this morning at 5:30 in the morning and drove to her work which is [employer]. She arrived around 6 and it was quite busy and then around 6:30 chest pain started in the midsternal area radiating to the left shoulder. She states by 7:00 she said she had to go home and when she got home her called 911 and patient was brought by him and lives into the hospital. In route to the hospital, the patient was found to be in acute inferior ST elevated myocardial infarction. Subsequently she was seen briefly in the ER for evaluation and then the patient underwent an emergent heart catheterization with Dr. Brunson which revealed acute total occlusion of the midright coronary artery with a plaque rupture and thrombus formation along with severe disease involving the left circumflex and intermediate to severe disease involving the proximal to mid LAD. The patient underwent an aspiration thrombectomy from the right coronary artery with the extraction of thrombus and successful balloon angioplasty and stenting of the RCA with an excellent angiographic results and MK 3 flow and reduction of stenosis from 100% to 0%. She was chest pain-free by the end of the procedure and no ST segment deviation seen as well. The patient is now seen in the intensive care unit. She remains chest pain-free. She denies any shortness of breath, dizziness or lightheadedness. Right groin is without difficulties. Her last hemoglobin A1c was 7.3. I work on presentation includes BUN 37 creatinine 1.45, blood sugar 222, magnesium 1.3, troponin 0.054. Chest x-ray reveals chronic appearing changes, possible bronchitis or asthma. Otherwise no acute cardiopulmonary process. Echoca rdiogram reveals EF of 55-60% with borderline concentric left hypertrophy, mild tricuspid regurgitation. 02/25: Patient is seen in the intensive care unit setting up a recliner and is at the bedside. She is chest pain-free. She denies any shortness of breath, lightheadedness or dizziness. She is complaining of arthritic pain especially in the right shoulder and requesting Aleve. Discussed need to avoid nonsteroidals and Tylenol will be started. Patient has been hemodynamically stable through the night. operator cavity pump is normal sinus rhythm. Dr. Brunson is planning PCI of the left circumflex in the next 24 hours and patient has been cleared to transfer to the cardiac stepdown unit and is awaiting a bed. Review of Systems Constitutional: Reports fatigue, Denies anorexia, Denies chills, Denies fever, Denies lethargy, Denies malaise, Denies poor appetite, Denies weakness Eyes: denies blurred vision, denies pain Ears, nose, mouth and throat: Denies dental pain, Denies headache, Denies nasal congestion, Denies nasal discharge, Denies sore throat, Denies vertigo Cardiovascular: Denies chest pain, Denies edema, Denies leg edema, Denies lightheadedness, Denies shortness of breath, Denies syncope Respiratory: Denies cough, Denies cough with sputum, Denies dyspnea, Denies excessive sputum, Denies hemoptysis, Denies home oxygen, Denies wheezing Gastrointestinal: Denies abdominal pain, Denies constipation, Denies diarrhea, Denies melena, Denies nausea, Denies vomiting Genitourinary: Denies dysuria, Denies hematuria, Denies urgency, Denies urinary frequency Musculoskeletal: Denies frequent falls, Denies gait dysfunction, Denies muscle weakness, Denies myalgias, reports osteoarthritic pain generalized Integumentary: Denies pruritus, Denies rash, Denies wounds Neurological: Denies change in mentation, Denies gait dysfunction, Denies numbness, Denies weakness Psychiatric: Denies anxiety, Denies depression Endocrine: Denies fatigue, Denies weight change Objective - Vital Signs Vital signs: Vital Signs Temp 99.1 F 02/25/19 08:00 Pulse 90 02/25/19 08:00 Resp 23 02/25/19 08:00 BP 132/79 02/25/19 08:00 Pulse Ox 98 02/25/19 08:00 Intake & Output 02/24/19 02/25/19 02/25/19 18:59 06:59 18:59 Intake Total 2525 270 Output Total 450 1500 0 Balance 2075 -1230 0 Weight 86.183 kg 90.2 kg Intake: IV 2024 150 Magnesium Sulfate-D5w Pmx 400 1 gm In Dextrose/Water 1 100ml.bag @ 100 mls/hr IVPB Q1H [facility] Rx#: [id number] Sodium Chloride 0.9% 1, 750 150 000 ml @ 75 mls/hr IV . [id number] [facility] Rx#:[id number] Oral 120 Blood Product 500 Output: Urine 450 1500 0 Other: Voiding Method Toilet Toilet # Voids 1 - Exam - Constitutional General appearance: average body habitus, cooperative, no acute distress, patient is sitting up in a recliner. - EENT Eyes: normal appearance ENT: hearing grossly normal, no thrush - Neck Neck: no lymphadenopathy, no rigidity - Respiratory Respiratory: bilateral: CTA - Cardiovascular Rhythm: regular Heart sounds: normal: S1, S2 Abnormal Heart Sounds: no systolic murmur, no diastolic murmur - Gastrointestinal General gastrointestinal: no distended, normal bowel sounds, no organomegaly, soft, no tenderness - Integumentary Integumentary: normal, normal turgor, no pale Right groin site soft. - Neurologic Neurologic: CNII-XII intact - Musculoskeletal Musculoskeletal: no generalized weakness, strength equal bilaterally - Psychiatric Psychiatric: A&O x's 3, appropriate affect, intact judgment & insight - Labs CBC & Chem 7: 02/24/19 08:15 02/25/19 04:45 Labs: Abnormal Lab Results - Last 24 Hours (Table) 02/24/19 02/24/19 02/24/19 Range/Units 08:15 11:43 17:05 BUN (7-17) mg/dL Creatinine (0.52-1.04) mg/dL Glucose (74-99) mg/dL POC Glucose (mg/dL) 204 H 250 H (75-99) mg/dL Troponin I 0.054 H* (0.000-0.034) ng/mL LDL Cholesterol, Calc (0-99) mg/dL HDL Cholesterol (40-60) mg/dL 02/24/19 02/25/19 02/25/19 Range/Units 20:35 04:45 06:55 BUN 31 H (7-17) mg/dL Creatinine 1.45 H (0.52-1.04) mg/dL Glucose 144 H (74-99) mg/dL POC Glucose (mg/dL) 159 H 155 H (75-99) mg/dL Troponin I (0.000-0.034) ng/mL LDL Cholesterol, Calc 115 H (0-99) mg/dL HDL Cholesterol 35 L (40-60) mg/dL Assessment and Plan Plan: 1. Acute inferior ST elevated myocardial infarction with total occlusion of the RCA status post emergent heart catheterization with aspiration thrombectomy from the right coronary artery with the extraction of thrombus and successful balloon angioplasty and stenting of the RCA. Patient also has severe disease in the left circumflex and intermediate to severe disease in the proximal to mid LAD. Continue aspirin, Lipitor 80 mg, Plavix 75 mg, Lopressor 25 mg twice daily, fosinopril 2.5 mg daily. PCI of the left circumflex planned for tomorrow. 2. Hypertension. Continue lisinopril and Lopressor. Hold losartan. 3. Hyperlipidemia. Continue atorvastatin. 4. Chronic kidney disease IIIB, at baseline. Recheck basic metabolic panel in the morning, avoid nephrotoxic agents, hold metformin 5. Diabetes mellitus type 2 with diabetic neuropathy of the lower extremities. Continue NovoLog scale before meals and at bedtime, resume glipizide 5 mg daily, Tradjenta 5 mg daily for Januvia. Hold metformin. 6. GI prophylaxis. Pepcid. 7. Osteoarthritis, generalized. Tylenol ordered. Discharge plan: return home probably on Impression and plan of care have been directed as dictated by the signing physician. Benita Olivera nurse practitioner acting as scribe for signing physician.
[2019-02-25 17:05] LABS: Glucose,Whole Blood 183 mg/dL (75-99)
[2019-02-25 20:50] LABS: Glucose,Whole Blood 137 mg/dL (75-99)
[2019-02-25] MEDS: ATORVASTATIN 80 MG TAB PO SCH (20:56)
[2019-02-26 04:54] LABS: HCT 40.6 % (34.0-46.0); HGB 13.2 gm/dL (11.4-16.0); MCH 30.3 pg (25.0-35.0); MCHC 32.5 g/dL (31.0-37.0); MCV 93.3 fL (80.0-100.0); Platelet Count 277 k/uL (150-450); RBC 4.36 m/uL (3.80-5.40); RDW 12.9 % (11.5-15.5); WBC 8.2 k/uL (3.8-10.6)
[2019-02-26 05:05] LABS: Potassium 4.8 mmol/L (3.5-5.1)
[2019-02-26 06:48] LABS: Glucose,Whole Blood 141 mg/dL (75-99)
[2019-02-26] MEDS: glipiZIDE 5 MG TAB PO SCH ×2 (06:49→17:24)
[2019-02-26] MEDS: INSULIN ASPART (NovoLOG) 100 UNIT/ML VIAL SQ SCH ×4 (06:57→20:47)
--- NOTE | 2019-02-26 07:43 | P.PN ---
Subjective Progress Note Date: 02/26/19 Principal diagnosis: Acute coronary event This is a pleasant 68-year-old female patient with history of hypertension and dyslipidemia presented to the hospital with a chest discomfort and was diagnosed with acute inferior ST elevation myocardial infarction which she underwent an emergent heart catheterization and was found to have occluded RCA which was opened and stented and also severe disease involving the left circumflex coronary artery. The patient was seen this morning, February [id number], she is asymptomatic from a cardiovascular standpoint. She is on dual antiplatelet therapy along with high intensity statin. She is going to undergo a PCI of the left circumflex later on today. Objective - Vital Signs Vital signs: Vital Signs Temp 98.8 F 02/26/19 04:00 Pulse 75 02/26/19 05:00 Resp 18 02/26/19 05:00 BP 140/82 02/26/19 04:00 Pulse Ox 94 L 02/26/19 04:00 Intake & Output 02/25/19 02/26/19 02/26/19 18:59 06:59 18:59 Intake Total 400 Output Total 1250 Balance -850 Weight 89.9 kg Intake: IV 100 Magnesium Sulfate-D5w Pmx 100 1 gm In Dextrose/Water 1 100ml.bag @ 100 mls/hr IVPB Q1H [facility] Rx#: [id number] Oral 300 Output: Urine 1250 Other: Voiding Method Toilet Toilet # Voids 2 0 - Constitutional General appearance: Present: no acute distress - Respiratory Respiratory: bilateral: CTA - Cardiovascular Rhythm: regular Heart sounds: normal: S1, S2 - Labs CBC & Chem 7: 02/26/19 04:18 02/26/19 04:13 Labs: Abnormal Lab Results - Last 24 Hours (Table) 02/25/19 02/25/19 02/25/19 Range/Units 11:47 17:04 20:48 BUN (7-17) mg/dL Creatinine (0.52-1.04) mg/dL Glucose (74-99) mg/dL POC Glucose (mg/dL) 123 H 183 H 137 H (75-99) mg/dL 02/26/19 02/26/19 Range/Units 04:13 06:47 BUN 34 H (7-17) mg/dL Creatinine 1.58 H (0.52-1.04) mg/dL Glucose 127 H (74-99) mg/dL POC Glucose (mg/dL) 141 H (75-99) mg/dL Assessment and Plan Assessment: Assessment #[address] elevation myocardial infarction #2 status post PCI of the RCA #3 multiple comorbid conditions Plan #1 continue the current medical regimen including dual antiplatelet therapy and high intensity started #2 PCI of the left circumflex to be done today
[2019-02-26] MEDS: ASPIRIN 325 MG TAB PO SCH (09:33)
[2019-02-26] MEDS: FAMOTIDINE 20 MG TAB PO SCH (09:33)
[2019-02-26] MEDS: CLOPIDOGREL 75 MG TAB PO SCH (09:33)
[2019-02-26] MEDS: CHOLECALCIFEROL 1,000 UNIT TAB PO SCH (09:33)
[2019-02-26] MEDS: METOPROLOL TARTRATE 25 MG TAB PO SCH ×2 (09:34→20:49)
[2019-02-26] MEDS: LISINOPRIL 2.5 MG TAB PO SCH (09:34)
[2019-02-26] MEDS: CYANOCOBALAMIN 500 MCG TAB PO SCH (09:34)
[2019-02-26] MEDS ORDERED: ALPRAZolam 0.25 MG TAB PO PRN (09:47)
[2019-02-26] MEDS ORDERED: ASPIRIN 325 MG TAB PO STA (09:47)
[2019-02-26] MEDS ORDERED: ALPRAZolam 0.5 MG TAB PO PRN (09:47)
[2019-02-26] MEDS ORDERED: ATORVASTATIN 80 MG TAB PO STA (09:47)
[2019-02-26] MEDS ORDERED: NITROGLYCERIN SL TABS 0.4 MG TAB SUBLINGUAL PRN ×2 (09:47→12:03)
[2019-02-26] MEDS ORDERED: SODIUM CHLORIDE 0.9% 1,000 ML in EMPTY BAG 1 BAG IV ONE (09:47)
[2019-02-26] MEDS: LINAGLIPTIN 5 MG TABLET PO SCH (09:48)
[2019-02-26 10:50] LABS: Glucose,Whole Blood 129 mg/dL (75-99)
[2019-02-26] MEDS ORDERED: IV FLUID CONTINUATION 1,000 ML IV ONE (11:12)
[2019-02-26] MEDS ORDERED: MIDAZOLAM 2 MG/2 ML VIAL IV ONE (11:33)
[2019-02-26] MEDS ORDERED: LIDOCAINE 1% INJ 10MG/ML (20 ML MDV) SQ ONE (11:38)
[2019-02-26] MEDS: VERAPAMIL SYRINGE (5 MG/10 ML) INTRAARTER ONE ×2 (11:39→11:57)
[2019-02-26] MEDS ORDERED: BIVALIRUDIN BOLUS 250 MG/50 ML IV ONE (11:40)
[2019-02-26] MEDS ORDERED: BIVALIRUDIN 250 MG in SODIUM CHLORIDE 0.9% 50 ML IV ONE (11:41)
[2019-02-26] MEDS ORDERED: CLOPIDOGREL 75 MG TAB PO ONE (11:56)
[2019-02-26] MEDS ORDERED: NITROGLYCERIN 1000MCG/10ML SYRINGE INTRACORON ONE (11:56)
[2019-02-26] MEDS ORDERED: IOPAMIDOL-370 125ML BTL INJ ONE (11:57)
[2019-02-26] MEDS ORDERED: MAG HYDROX/AL HYDROX/SIMETH 30 ML CUP PO PRN (12:03)
[2019-02-26] MEDS ORDERED: ATROPINE SULFATE 0.1 MG/ML 10ML SYRINGE IV PRN (12:03)
[2019-02-26] MEDS ORDERED: RX INFO: IV CONTRAST WAS GIVEN 1 EACH MISC MISCELLANE PRN (12:03)
[2019-02-26] MEDS ORDERED: ZOLPIDEM 5 MG TAB PO PRN (12:03)
[2019-02-26] MEDS ORDERED: SODIUM CHLORIDE 0.9% 1,000 ML IV SCH (12:15)
--- NOTE | 2019-02-26 12:48 | PTCA ---
PERCUTANEOUSTRANS CORORONARY ANGIOGRAPHY DATE OF SERVICE: February 26, 2019 PERFORMING PHYSICIAN: Kaushik Brunson MD. PROCEDURE PERFORMED: Successful stenting of the mid left circumflex using 3.5 x 15 and 3.0 x 12 mm Xience LAURA with an excellent angiographic result and reduction of stenosis from 90% to 0%. INDICATION: This is a 68-year-old female patient who presented to the hospital 2 days ago with acute inferior ST-elevation myocardial infarction and underwent PCI of the RCA and was found to have critical disease involving the left circumflex. She was brought today to undergo a PCI of the LCX. APPROACH: Right radial artery. COMPLICATION: None. LEVEL OF SEDATION: Moderate with sedation length of 26 minutes. PROCEDURE DESCRIPTION: After obtaining an informed consent, the patient was brought to cardiac laborer bituminous paving. The right radial artery was cannulated using micropuncture technique. Then I placed a 6- [place] sheath. Anticoagulation was initiated using Angiomax. Subsequently I did engage the left main using JL3.5 guide. I did wire it using a run-through wire. After that I did balloon angioplasty using 3.5 x 12 mm balloon before I deployed a 3.5 x 15 mm Xience LAURA where the stent was positioned under fluoroscopy guidance and deployed under 8 atmospheres for 20 seconds. The following angiogram showed distal edge dissection. I decided to cover that with a stent so I deployed a 3.0 x 12 mm Xience where the stent was positioned under fluoroscopy guidance and deployed under its nominal pressure. The following and the area of overlap between the 2 stents was dilated using the stent balloon. The procedure was completed without any complication. POSTPROCEDURE MANAGEMENT: 1. Dual antiplatelet therapy. 2. Risk factors modifications. 3. Follow up with the patient. MMODL / IJN: [id number] /
[2019-02-26] MEDS: LACTOBACILLUS ACIDOPH & BULGAR 1 EACH PACKET PO SCH (13:17)
[2019-02-26 13:19] LABS: Glucose,Whole Blood 101 mg/dL (75-99)
--- NOTE | 2019-02-26 13:27 | P.PN ---
Subjective Progress Note Date: 02/26/19 This is a 68-year-old female patient of Dr. Cade with a past medical history significant for diabetes, hypertension, dyslipidemia, chronic kidney disease, diabetic neuropathy. She presented to [facility] emergency room complaining of chest discomfort. Patient states that she left her house this morning at 5:30 in the morning and drove to her work which is [employer]. She arrived around 6 and it was quite busy and then around 6:30 chest pain started in the midsternal area radiating to the left shoulder. She states by 7:00 she said she had to go home and when she got home her called 911 and patient was brought by him and lives into the hospital. In route to the hospital, the patient was found to be in acute inferior ST elevated myocardial infarction. Subsequently she was seen briefly in the ER for evaluation and then the patient underwent an emergent heart catheterization with Dr. Brunson which revealed acute total occlusion of the midright coronary artery with a plaque rupture and thrombus formation along with severe disease involving the left circumflex and intermediate to severe disease involving the proximal to mid LAD. The patient underwent an aspiration thrombectomy from the right coronary artery with the extraction of thrombus and successful balloon angioplasty and stenting of the RCA with an excellent angiographic results and MK 3 flow and reduction of stenosis from 100% to 0%. She was chest pain-free by the end of the procedure and no ST segment deviation seen as well. The patient is now seen in the intensive care unit. She remains chest pain-free. She denies any shortness of breath, dizziness or lightheadedness. Right groin is without difficulties. Her last hemoglobin A1c was 7.3. I work on presentation includes BUN 37 creatinine 1.45, blood sugar 222, magnesium 1.3, troponin 0.054. Chest x-ray reveals chronic appearing changes, possible bronchitis or asthma. Otherwise no acute cardiopulmonary process. Echoca rdiogram reveals EF of 55-60% with borderline concentric left hypertrophy, mild tricuspid regurgitation. 02/25: Patient is seen in the intensive care unit setting up a recliner and is at the bedside. She is chest pain-free. She denies any shortness of breath, lightheadedness or dizziness. She is complaining of arthritic pain especially in the right shoulder and requesting Aleve. Discussed need to avoid nonsteroidals and Tylenol will be started. Patient has been hemodynamically stable through the night. estimator is normal sinus rhythm. Dr. Brunson is planning PCI of the left circumflex in the next 24 hours and patient has been cleared to transfer to the cardiac stepdown unit and is awaiting a bed. 02/26: Patient has been afebrile, heart rate 75, blood pressure 140/82, pulse ox 94% on room air. CBC within normal limits, BUN 34 and creatinine 1.58, electrolytes normal, blood sugar 141. Triglycerides 133, cholesterol 177, LDL 115, HDL 35. Patient continues to deny any chest pain or shortness of breath. She underwent successful PCI of the left circumflex with [address] Brunson. Patient is seen after procedure and appears to be in no acute distress. She continues to deny chest pain. is at bedside. Anticipate discharge home tomorrow. Review of Systems Constitutional: Denies fatigue, Denies anorexia, Denies chills, Denies fever, Denies lethargy, Denies malaise, Denies poor appetite, Denies weakness Ears, nose, mouth and throat: Denies dental pain, Denies headache, Denies nasal congestion, Denies nasal discharge, Denies sore throat, Denies vertigo Cardiovascular: Denies chest pain, Denies edema, Denies leg edema, Denies lightheadedness, Denies shortness of breath, Denies syncope Respiratory: Denies cough, Denies cough with sputum, Denies dyspnea, Denies excessive sputum, Denies hemoptysis, Denies home oxygen, Denies wheezing Gastrointestinal: Denies abdominal pain, Denies constipation, Denies diarrhea, Denies melena, Denies nausea, Denies vomiting Genitourinary: Denies dysuria, Denies hematuria, Denies urgency, Denies urinary frequency Musculoskeletal: Denies frequent falls, Denies gait dysfunction, Denies muscle weakness, Denies myalgias, reports osteoarthritic pain generalized Integumentary: Denies pruritus, Denies rash, Denies wounds Neurological: Denies change in mentation, Denies gait dysfunction, Denies numbness, Denies weakness Psychiatric: Denies anxiety, Denies depression Endocrine: Denies fatigue, Denies weight change Objective - Vital Signs Vital signs: Vital Signs Temp 98.8 F 02/26/19 04:00 Pulse 75 02/26/19 05:00 Resp 18 02/26/19 05:00 BP 140/82 02/26/19 04:00 Pulse Ox 94 L 02/26/19 04:00 Intake & Output 02/25/19 02/26/19 02/26/19 18:59 06:59 18:59 Intake Total 400 Output Total 1250 Balance -850 Weight 89.9 kg Intake: IV 100 Magnesium Sulfate-D5w Pmx 100 1 gm In Dextrose/Water 1 100ml.bag @ 100 mls/hr IVPB Q1H [facility] Rx#: [id number] Oral 300 Output: Urine 1250 Other: Voiding Method Toilet Toilet # Voids 2 0 - Exam - Constitutional General appearance: average body habitus, cooperative, no acute distress, and daughter at bedside - EENT Eyes: normal appearance ENT: hearing grossly normal, no thrush - Neck Neck: no lymphadenopathy, no rigidity - Respiratory Respiratory: bilateral: CTA - Cardiovascular Rhythm: regular Heart sounds: normal: S1, S2 Abnormal Heart Sounds: no systolic murmur, no diastolic murmur - Gastrointestinal General gastrointestinal: no distended, normal bowel sounds, no organomegaly, soft, no tenderness - Integumentary Integumentary: normal, normal turgor, no pale Right groin site soft. TR band in place to the right wrist. - Neurologic Neurologic: CNII-XII intact - Musculoskeletal Musculoskeletal: no generalized weakness, strength equal bilaterally - Psychiatric Psychiatric: A&O x's 3, appropriate affect, intact judgment & insight - Labs CBC & Chem 7: 02/26/19 04:18 02/26/19 04:13 Labs: Abnormal Lab Results - Last 24 Hours (Table) 02/25/19 02/25/19 02/25/19 Range/Units 11:47 17:04 20:48 BUN (7-17) mg/dL Creatinine (0.52-1.04) mg/dL Glucose (74-99) mg/dL POC Glucose (mg/dL) 123 H 183 H 137 H (75-99) mg/dL 02/26/19 02/26/19 Range/Units 04:13 06:47 BUN 34 H (7-17) mg/dL Creatinine 1.58 H (0.52-1.04) mg/dL Glucose 127 H (74-99) mg/dL POC Glucose (mg/dL) 141 H (75-99) mg/dL Assessment and Plan Plan: 1. Acute inferior ST elevated myocardial infarction with total occlusion of the RCA status post emergent heart catheterization with aspiration thrombectomy from the right coronary artery with the extraction of thrombus and successful balloon angioplasty and stenting of the RCA. Patient also has severe disease in the left circumflex and intermediate to severe disease in the proximal to mid LAD. Continue aspirin, Lipitor 80 mg, Plavix 75 mg, Lopressor 25 mg twice daily, fosinopril 2.5 mg daily. PCI with 2 stents of the left circumflex today. 2. Hypertension. Continue lisinopril and Lopressor. Hold losartan. 3. Hyperlipidemia. Continue atorvastatin. 4. Chronic kidney disease IIIB, at baseline. Recheck basic metabolic panel in the morning, avoid nephrotoxic agents, hold metformin 5. Diabetes mellitus type 2 with diabetic neuropathy of the lower extremities. Continue NovoLog scale before meals and at bedtime, resume glipizide 5 mg twice daily, Tradjenta 5 mg daily for Januvia. Hold metformin. 6. GI prophylaxis. Pepcid. 7. Osteoarthritis, generalized. Tylenol ordered. Discharge plan: Home Impression and plan of care have been directed as dictated by the signing physician. Benita Olivera nurse practitioner acting as scribe for signing physician.
[2019-02-26 16:53] LABS: Glucose,Whole Blood 172 mg/dL (75-99)
[2019-02-26 20:41] LABS: Glucose,Whole Blood 155 mg/dL (75-99)
[2019-02-26] MEDS: ATORVASTATIN 80 MG TAB PO SCH (20:49)
[2019-02-27 05:09] LABS: Basophils % (A) 1 %; Eosinophils # (A) 0.3 k/uL (0-0.7); Eosinophils % (A) 3 %; HCT 38.6 % (34.0-46.0); HGB 13.1 gm/dL (11.4-16.0); Lymphocytes # (A) 1.9 k/uL (1.0-4.8); Lymphocytes % (A) 25 %; MCH 31.2 pg (25.0-35.0); MCHC 33.9 g/dL (31.0-37.0); MCV 92.2 fL (80.0-100.0); Monocytes # (A) 0.7 k/uL (0-1.0); Monocytes % (A) 9 %; Neutrophils # (A) 4.6 k/uL (1.3-7.7); Neutrophils % (A) 60 %; Platelet Count 256 k/uL (150-450); RBC 4.18 m/uL (3.80-5.40); RDW 12.7 % (11.5-15.5); WBC 7.6 k/uL (3.8-10.6)
[2019-02-27 05:21] LABS: Calcium 9.3 mg/dL (8.4-10.2); Potassium 4.6 mmol/L (3.5-5.1)
[2019-02-27 06:44] LABS: Glucose,Whole Blood 122 mg/dL (75-99)
[2019-02-27] MEDS: INSULIN ASPART (NovoLOG) 100 UNIT/ML VIAL SQ SCH ×2 (06:45→12:02)
[2019-02-27] MEDS: glipiZIDE 5 MG TAB PO SCH (06:46)
[2019-02-27] MEDS: CYANOCOBALAMIN 500 MCG TAB PO SCH (08:11)
[2019-02-27] MEDS: METOPROLOL TARTRATE 25 MG TAB PO SCH (08:11)
[2019-02-27] MEDS: FAMOTIDINE 20 MG TAB PO SCH (08:11)
[2019-02-27] MEDS: LISINOPRIL 2.5 MG TAB PO SCH (08:12)
[2019-02-27] MEDS: CLOPIDOGREL 75 MG TAB PO SCH (08:12)
[2019-02-27] MEDS: ASPIRIN 325 MG TAB PO SCH (08:12)
[2019-02-27] MEDS: LINAGLIPTIN 5 MG TABLET PO SCH (08:12)
[2019-02-27] MEDS: CHOLECALCIFEROL 1,000 UNIT TAB PO SCH (08:12)
--- NOTE | 2019-02-27 09:02 | P.PN ---
Subjective Progress Note Date: 02/27/19 Principal diagnosis: Acute coronary event This is a pleasant 68-year-old female patient with history of hypertension and dyslipidemia presented to the hospital with a chest discomfort and was diagnosed with acute inferior ST elevation myocardial infarction which she underwent an emergent heart catheterization and was found to have occluded RCA which was opened and stented and subsequently she underwent stenting of the LCx She was seen this morning, February [id number]. Overall she is doing good and she is asymptomatic reach continues to be on maximize medical treatment i ncluding dual antiplatelet therapy and high intensity statin. I do feel that from the cardiac vascular standpoint overview, the patient can be discharged home. Objective - Vital Signs Vital signs: Vital Signs Temp 98.4 F 02/27/19 04:00 Pulse 78 02/27/19 04:00 Resp 17 02/27/19 04:00 BP 141/85 02/27/19 04:00 Pulse Ox 96 02/27/19 04:00 Intake & Output 02/26/19 02/27/19 02/27/19 18:59 06:59 18:59 Intake Total 620 Output Total 800 400 Balance -180 -400 Weight 89 kg Intake: IV 95 Intake, IV Titration 525 Amount Sodium Chloride 0.9% 1, 525 000 ml @ 75 mls/hr IV . [id number] [facility] Rx#:[id number] Output: Urine 800 400 Other: Voiding Method Toilet Toilet # Voids 2 1 - Constitutional General appearance: Present: no acute distress - Respiratory Respiratory: bilateral: CTA - Cardiovascular Rhythm: regular Heart sounds: normal: S1, S2 - Labs CBC & Chem 7: 02/27/19 04:50 02/27/19 04:50 Labs: Abnormal Lab Results - Last 24 Hours (Table) 02/26/19 02/26/19 02/26/19 Range/Units 10:48 13:18 16:52 Chloride (98-107) mmol/L BUN (7-17) mg/dL Creatinine (0.52-1.04) mg/dL POC Glucose (mg/dL) 129 H 101 H 172 H (75-99) mg/dL 02/26/19 02/27/19 02/27/19 Range/Units 20:40 04:50 06:43 Chloride 109 H (98-107) mmol/L BUN 27 H (7-17) mg/dL Creatinine 1.30 H (0.52-1.04) mg/dL POC Glucose (mg/dL) 155 H 122 H (75-99) mg/dL Assessment and Plan Assessment: Assessment #[address] elevation myocardial infarction #2 status post PCI of the RCA #3 multiple comorbid conditions Plan #1 continue the current medical regimen including dual antiplatelet therapy and high intensity started #2 the patient can be discharged home
[2019-02-27 09:45] VITALS: TEMP 98.5
[2019-02-27 11:31] LABS: Glucose,Whole Blood 170 mg/dL (75-99)
[2019-02-27] MEDS: LACTOBACILLUS ACIDOPH & BULGAR 1 EACH PACKET PO SCH (11:59)
[2019-02-27 13:10] VITALS: BP 140/84; PULSE 84; RESP 18
--- NOTE | 2019-02-27 15:08 | P.DS ---
Providers Date of admission: 02/24/19 08:54 Expected date of discharge: 02/27/19 Attending physician: Oracio Bakrley Consults: 02/24/19 08:54 Consult Physician Stat Consulting Provider: Kaushik Brunson Reason/Comments: stemi Do you want consulting provider notified?: Already Contacted 02/24/19 09:20 Consult Physician Routine Consulting Provider: [facility] Consult Reason/Comments: Post Interventional patient Do you want consulting provider notified?: Already Contacted 02/26/19 12:03 Consult Physician Routine Consulting Provider: [facility] Consult Reason/Comments: Post Interventional patient Do you want consulting provider notified?: Already Contacted [facility]: This is a 68-year-old female patient of Dr. Cade with a past medical history significant for diabetes, hypertension, dyslipidemia, chronic kidney disease, diabetic neuropathy. She presented to [facility] emergency room complaining of chest discomfort. Patient states that she left her house this morning at 5:30 in the morning and drove to her work which is [employer]. She arrived around 6 and it was quite busy and then around 6:30 chest pain started in the midsternal area radiating to the left shoulder. She states by 7:00 she said she had to go home and when she got home her called 911 and patient was brought by him and lives into the hospital. In route to the hospital, the patient was found to be in acute inferior ST elevated myocardial infarction. Subsequently she was seen briefly in the ER for evaluation and then the patient underwent an emergent heart catheterization with Dr. Brunson which revealed acute total occlusion of the midright coronary artery with a plaque rupture and thrombus formation along with severe disease involving the left circumflex and intermediate to severe disease involving the proximal to mid LAD. The patient underwent an aspiration thrombectomy from the right coronary artery with the extraction of thrombus and successful balloon angioplasty and stenting of the RCA with an excellent angiographic results and MK 3 flow and reduction of stenosis from 100% to 0%. She was chest pain-free by the end of the procedure and no ST segment deviation seen as well. The patient is now seen in the intensive care unit. She remains chest pain-free. She denies any shortness of breath, dizziness or lightheadedness. Right groin is without difficulties. Her last hemoglobin A1c was 7.3. I work on presentation includes BUN 37 creatinine 1.45, blood sugar 222, magnesium 1.3, troponin 0.054. Chest x-ray reveals chronic appearing changes, possible bronchitis or asthma. Otherwise no acute cardiopulmonary process. Echocardiogram reveals EF of 55-60% with borderline concentric left hypertrophy, mild tricuspid regurgitation. 02/25: Patient is seen in the intensive care unit setting up a recliner and is at the bedside. She is chest pain-free. She denies any shortness of breath, lightheadedness or dizziness. She is complaining of arthritic pain especially in the right shoulder and requesting Aleve. Discussed need to avoid nonsteroidals and Tylenol will be started. Patient has been hemodynamically stable through the night. residential monitor is normal sinus rhythm. Dr. Brunson is planning PCI of the left circumflex in the next 24 hours and patient has been cleared to transfer to the cardiac stepdown unit and is awaiting a bed. 02/26: Patient has been afebrile, heart rate 75, blood pressure 140/82, pulse ox 94% on room air. CBC within normal limits, BUN 34 and creatinine 1.58, electrolytes normal, blood sugar 141. Triglycerides 133, cholesterol 177, LDL 115, HDL 35. Patient continues to deny any chest pain or shortness of breath. She underwent successful PCI of the left circumflex with [address] Brunson. Patient is seen after procedure and appears to be in no acute distress. She continues to deny chest pain. is at bedside. Anticipate discharge home tomorrow. 02/27: Patient has been seen by Dr. Brunson this morning and has been cleared for discharge home. Patient remains chest pain-free. Repeat BUN 27 and creatinine 1.3. Blood sugars running between 99 and 155. Patient will be resumed on her home diabetic medications. Shows no signs of hematoma and tissue is soft. Patient will be discharged home today in stable condition. Discharge diagnoses: 1. Acute inferior ST elevated myocardial infarction with total occlusion of the RCA status post emergent heart catheterization with aspiration thrombectomy from the right coronary artery with the extraction of thrombus and successful balloon angioplasty and stenting of the RCA on February 24. PCI with 2 stents of the left circumflex February 26. 2. Hypertension. 3. Hyperlipidemia. 4. Chronic kidney disease IIIB, at baseline. 5. Diabetes mellitus type 2 with diabetic neuropathy of the lower extremities. 6. GI prophylaxis. 7. Osteoarthritis, generalized. Discharge plan: Home Impression and plan of care have been directed as dictated by the signing physician. Benita Olivera nurse practitioner acting as scribe for signing physician. Patient Condition at Discharge: Good Plan - Discharge Summary Discharge Rx Participant: No New Discharge Prescriptions: New Aspirin 81 mg PO DAILY #30 tab Atorvastatin [Lipitor] 80 mg PO HS #30 tab Metoprolol Tartrate [Lopressor] 25 mg PO BID #60 tab Nitroglycerin Sl Tabs [Nitrostat] 0.4 mg SUBLINGUAL Q5M PRN #25 tab PRN Reason: Chest Pain Clopidogrel [Plavix] 75 mg PO DAILY #30 tab Lisinopril [Zestril] 2.5 mg PO DAILY #30 tab Continue Fexofenadine HCl [Liana Allergy] 180 mg PO DAILY Biotin 5 mg PO DAILY Vitamin B Complex 1 cap PO DAILY L.acidoph,Paracasei, B.lactis [Probiotic] 1 cap PO AC-LUNCH Cyanocobalamin (Vitamin B-12) [Vitamin B-12] 1,000 mcg PO DAILY Cinnamon Bark [Cinnamon] 500 mg PO AC-LUNCH Cholecalciferol [Vitamin D3 (25 Mcg = 1000 Iu)] 1,000 unit PO DAILY metFORMIN HCL [Glucophage] 500 mg PO BID Dulaglutide [Trulicity] 1.5 mg SQ TU Calcium/Magnesium/Zinc [Pgtbfas-Uobkptzjw-Auyq Tablet] 1 tab PO DAILY sitaGLIPtin [Januvia] 100 mg PO DAILY glipiZIDE [Glucotrol] 5 mg PO DAILY Turmeric Root Extract [Turmeric] 500 mg PO BID Dhea(Unknown Dose) 1 cap PO DAILY Discontinued Aspirin EC [Ecotrin] 325 mg PO MOWEFR Losartan Potassium 100 mg PO AC-LUNCH Discharge Medication List Biotin 5 mg PO DAILY 02/24/19 [History] Calcium/Magnesium/Zinc [Jctllad-Migjzfmex-Kvxm Tablet] 1 tab PO DAILY 02/24/19 [History] Cholecalciferol [Vitamin D3 (25 Mcg = 1000 Iu)] 1,000 unit PO DAILY 02/24/19 [History] Cinnamon Bark [Cinnamon] 500 mg PO AC-LUNCH 02/24/19 [History] Cyanocobalamin (Vitamin B-12) [Vitamin B-12] 1,000 mcg PO DAILY 02/24/19 [History] Dhea(Unknown Dose) 1 cap PO DAILY 02/24/19 [History] Dulaglutide [Trulicity] 1.5 mg SQ TU 02/24/19 [History] Fexofenadine HCl [Liana Allergy] 180 mg PO DAILY 02/24/19 [History] L.acidoph,Paracasei, B.lactis [Probiotic] 1 cap PO AC-LUNCH 02/24/19 [History] Turmeric Root Extract [Turmeric] 500 mg PO BID 02/24/19 [History] Vitamin B Complex 1 cap PO DAILY 02/24/19 [History] glipiZIDE [Glucotrol] 5 mg PO DAILY 02/24/19 [History] metFORMIN HCL [Glucophage] 500 mg PO BID 02/24/19 [History] sitaGLIPtin [Januvia] 100 mg PO DAILY 02/24/19 [History] Aspirin 81 mg PO DAILY #30 tab 02/27/19 [Rx] Atorvastatin [Lipitor] 80 mg PO HS #30 tab 02/27/19 [Rx] Clopidogrel [Plavix] 75 mg PO DAILY #30 tab 02/27/19 [Rx] Lisinopril [Zestril] 2.5 mg PO DAILY #30 tab 02/27/19 [Rx] Metoprolol Tartrate [Lopressor] 25 mg PO BID #60 tab 02/27/19 [Rx] Nitroglycerin Sl Tabs [Nitrostat] 0.4 mg SUBLINGUAL Q5M PRN #25 tab 02/27/19 [Rx] Follow up Appointment(s)/Referral(s): Kaushik Brunson MD [STAFF PHYSICIAN] - 03/04/19 11:30 am Leon Cade DO [Primary Care Provider] - 1 Week (Dr. Cade's office will call with appointment day and time.) Patient Instructions/Handouts: Heart Attack (DC), Heart Catheterization (DC) Activity/Diet/Wound Care/Special Instructions: Resume metformin tomorrow. Discharge Disposition: HOME SELF-CARE
== END 2019-02-27 13:35 | disposition home or self-care (01) | DRG 247 ==
LOC: EC 08:04 → 2SICU 08:54
PROVIDERS: ADMIT Internal Medicine Geriatric Medicine; ATTEND Internal Medicine Geriatric Medicine
PROC: 4A023N7 Measurement of Cardiac Sampling and Pressure, Left Heart, Percutaneous Approach (ICD-10-PCS; 2019-02-24)
PROC: B2111ZZ Fluoroscopy of Multiple Coronary Arteries using Low Osmolar Contrast (ICD-10-PCS; 2019-02-24)
PROC: 027034Z Dilation of Coronary Artery, One Artery with Drug-eluting Intraluminal Device, Percutaneous Approach (ICD-10-PCS; principal; 2019-02-24 08:37)
PROC: 027035Z Dilation of Coronary Artery, One Artery with Two Drug-eluting Intraluminal Devices, Percutaneous Approach (ICD-10-PCS; 2019-02-26)
PROC: 02703ZZ Dilation of Coronary Artery, One Artery, Percutaneous Approach (ICD-10-PCS; 2019-02-26)
DX: I21.19 ST elevation (STEMI) myocardial infarction involving other coronary artery of inferior wall (principal); I25.10 Atherosclerotic heart disease of native coronary artery without angina pectoris; E11.22 Type 2 diabetes mellitus with diabetic chronic kidney disease; E11.40 Type 2 diabetes mellitus with diabetic neuropathy, unspecified; E78.5 Hyperlipidemia, unspecified; I12.9 Hypertensive chronic kidney disease with stage 1 through stage 4 chronic kidney disease, or unspecified chronic kidney disease; I25.2 Old myocardial infarction; M19.90 Unspecified osteoarthritis, unspecified site; N18.9 Chronic kidney disease, unspecified; Z79.84 Long term (current) use of oral hypoglycemic drugs; Z79.899 Other long term (current) drug therapy; Z80.7 Family history of other malignant neoplasms of lymphoid, hematopoietic and related tissues; Z82.3 Family history of stroke; Z82.49 Family history of ischemic heart disease and other diseases of the circulatory system; Z83.3 Family history of diabetes mellitus; Z87.891 Personal history of nicotine dependence; Z90.710 Acquired absence of both cervix and uterus; Z98.42 Cataract extraction status, left eye; Z98.41 Cataract extraction status, right eye; Z96.1 Presence of intraocular lens; Z88.5 Allergy status to narcotic agent; Z79.82 Long term (current) use of aspirin
CPT/HCPCS: 36415; 71045; 80048; 80053; 80061; 82550; 82553; 83735; 84484; 85025; 85027; 85610; 85730; 93306; 93458; 96374; 96375; 99285; C1874

== ENCOUNTER → 2020-05-10 | Outpatient (CLI) | payer MEDICARE ==
--- NOTE | 2020-05-10 14:40 | XR ---
EXAMINATION TYPE: XR cervical spine comp DATE OF EXAM: 05/10/2020 CLINICAL HISTORY: pain COMPARISON: NONE TECHNIQUE: Frontal, lateral, oblique, swimmers, and open mouth view of the cervical spine are obtaine d. FINDINGS: Moderate to severe multilevel degenerative disc disease and spondylosis extending from C3 t hrough C6 7. No evidence for fracture or malalignment. Foraminal encroachment seen bilaterally at C3- 4 and C5-6. IMPRESSION: No acute fracture or dislocation is seen in the cervical spine.ICD 10 NO FRACTURE, INITI AL EVALUATION
--- NOTE | 2020-05-11 13:54 | MM ---
Reason for exam: screening (asymptomatic). Last mammogram was performed 1 year and 3 months ago. History: Patient is postmenopausal. Took hormonal contraceptives for 8 years beginning at age 22. Physical Findings: A clinical breast exam by your physician is recommended on an annual basis and results should be correlated with mammographic findings. MG 3D Screening Mammo W/Cad Bilateral CC and MLO view(s) were taken. XCCL view(s) were taken of the left breast. Prior study comparison: February 18, 2019, bilateral MG 3d screening mammo w/cad. February 11, 2018, bilateral MG 3d screening mammo w/cad. There are scattered fibroglandular densities. No significant changes when compared with prior studies. ASSESSMENT: Benign, BI-RAD 2 RECOMMENDATION: Routine screening mammogram of both breasts in 1 year.
== END | disposition home or self-care (01) ==
LOC: RADMAMWWP 13:27
PROVIDERS: ATTEND Family Medicine
DX: Z12.31 Encounter for screening mammogram for malignant neoplasm of breast (principal); Z80.3 Family history of malignant neoplasm of breast
CPT/HCPCS: 72050; 77063; 77067

== ENCOUNTER → 2022-12-21 | Outpatient (CLI) | payer MEDICARE ==
[2022-12-21 20:06] LABS: ALT 34 U/L (8-44); AST 26 U/L (13-35); Albumin 4.4 d/dL (3.8-4.9); Albumin/Globulin Ratio 1.76 Ratio (1.60-3.17); Alkaline Phosphatase 84 U/L (41-126); BUN/Creat Ratio 24.12 Ratio (12.00-20.00); Calcium 10.5 mg/dL (8.7-10.3); Carbon Dioxide 24.9 mmol/L (21.6-31.8); Chloride 100 mmol/L (96-109); Globulin 2.5 d/dL (1.6-3.3); Glucose 229 mg/dL (70-110); Potassium 4.8 mmol/L (3.5-5.5); Sodium 139 mmol/L (135-145); Total Bilirubin 0.3 mg/dL (0.3-1.2); Total Protein 6.9 d/dL (6.2-8.2)
[2022-12-21 20:49] LABS: Prealbumin 21.8 mg/dL (18.0-42.0)
[2022-12-21 20:54] LABS: Basophils # (A) 0.04 X 10*3/uL (0.00-0.10); Basophils % (A) 0.5 %; Eosinophils # (A) 0.17 X 10*3/uL (0.04-0.35); Eosinophils % (A) 2.3 %; HCT 40.4 % (37.2-46.3); HGB 13.3 d/dL (12.0-15.0); Lymphocytes # (A) 1.63 X 10*3/uL (0.90-5.00); Lymphocytes % (A) 22.2 %; MCH 30.8 pg (27.0-32.0); MCHC 32.9 d/dL (32.0-37.0); MCV 93.5 FL (80.0-97.0); Monocytes # (A) 0.74 X 10*3/uL (0.20-1.00); Monocytes % (A) 10.1 %; NRBC Per 100 WBC 0 X 10*3/uL (0.00-0.01); Neutrophils # (A) 4.74 X 10*3/uL (1.80-7.70); Neutrophils % (A) 64.5 %; Platelet Count 270 X 10*3/uL (140-440); RBC 4.32 X 10*6/uL (4.10-5.20); RDW 12.7 % (11.5-14.5); WBC 7.35 X 10*3/uL (4.50-10.00)
== END | disposition home or self-care (01) ==
LOC: LABWHC1 15:56
PROVIDERS: ATTEND Thoracic Surgery (Cardiothoracic Vascular Surgery)
DX: L97.912 Non-pressure chronic ulcer of unspecified part of right lower leg with fat layer exposed (principal); E11.8 Type 2 diabetes mellitus with unspecified complications
CPT/HCPCS: 36415; 80053; 83036; 84134; 85025